=== PATIENT | female | born 1940 | race Asian ===

== ENCOUNTER 2018-03-02 12:45 | Emergency (ER) | payer OTHER ==
[~2018-03-02] VITALS: Ht 154.9 cm; Wt 54.4 kg
[2018-03-02 13:13] VITALS: Ht 154.9 cm; Wt 54.4 kg
[2018-03-02 17:11] VITALS: BP 159/70
== END 2018-03-02 17:11 | disposition home or self-care (01) ==
LOC: ED 12:45
DX: H54.61 Unqualified visual loss, right eye, normal vision left eye (principal); H43.11 Vitreous hemorrhage, right eye; H40.9 Unspecified glaucoma
CPT/HCPCS: Q0092